=== PATIENT | male | born 1975 | race African-American/Black ===

== ENCOUNTER 2019-10-12 12:30 | Emergency (ER) | payer BC ==
[~2019-10-12] VITALS: Ht 175.3 cm; Wt 86.2 kg
[2019-10-12 14:32] LABS: ABSOLUTE NEUTROPHILS 2.6 thou/uL (1.4-8.2); BASOPHILS 0.9 % (0.0-2.0); EOSINOPHILS 0.7 % (0.0-3.0); HEMATOCRIT 42.1 % (42.0-52.0); HEMOGLOBIN 13.6 gm/dL (14.0-18.0); MCH 27.5 pg (26.0-34.0); MCHC 32.4 g/dL (28.0-37.0); MCV 84.8 fL (80.0-100.0); MONOCYTES 7.6 % (1.0-8.0); PLATELET COUNT 291 thou/uL (150-400); POLYS 60.8 % (36.0-66.0); RBC 4.96 mil/uL (4.50-6.00); WBC 4.2 thou/uL (4.0-11.0)
[2019-10-12 14:38] LABS: ANION GAP 7 mmol/L (7-16); BUN 7 mg/dL (7-18); CALCIUM 9.9 mg/dL (8.5-10.1); CHLORIDE 101 mmol/L (98-107); CO2 28 mmol/L (21-32); CREATININE 1.1 mg/dL (0.7-1.3); GLUCOSE 91 mg/dL (74-106); POTASSIUM 3.9 mmol/L (3.5-5.1); SODIUM 136 mmol/L (136-145)
[2019-10-12 14:46] LABS: TROPONIN-I <0.06 ng/mL (<0.06)
[2019-10-12] MEDS ORDERED: ZPAK PO (15:21)
[2019-10-12 15:40] VITALS: BP 124/88
--- NOTE | 2019-10-13 17:17 | EKG ---
[facility] [place] [address] ELECTROCARDIOGRAM REPORT Name: NYDIA HERNANDEZ Room #: DEP [facility]#: [id number] Admission: 10/12/19 Attend Phys: Discharge: 10/12/19 Date of : 71 Report #: [id number] THIS REPORT FOR: cc: FAM - Family physician unknown FAM - Family physician unknown Howard Vigil MD ~ THIS REPORT FOR: //name// [facility] ED Test Date: 2019-10-12 Test Time: 12:33:43 Pat Name: NYDIA HERNANDEZ Department: Room: Gender: [employer]: BARBARA : 1975 Requested By: Michelle Arechiga Order Number: [id number] MD: Howard Vigil Measurements Intervals Menan Rate: 80 P: 37 AL: 136 QRS: 16 QRSD: 67 T: 22 QT: 342 QTc: 395 Interpretive Statements Sinus rhythm Abnormal R-wave progression, early transition No previous ECG available for comparison Electronically Signed On 10-13-2019 17:16:33 CDT by Howard Vigil [email or web address] <ELECTRONICALLY SIGNED> By: Howard Vigil MD 10/13/19 1716 1233 1233 Howard Vigil MD /NERI
== END 2019-10-12 15:41 | disposition home or self-care (01) ==
LOC: ER 12:30
PROVIDERS: Emergency Medicine
DX: R07.9 Chest pain, unspecified (principal); R06.02 Shortness of breath